=== PATIENT | female | born 1985 | race Caucasian/White ===

== ENCOUNTER 2021-06-28 21:41 | Emergency (ER) | payer MEDICARE, MEDICAID, SELFPAY ==
[2021-06-28 22:03] VITALS: BP 137/93; PULSE 90; RESP 16; TEMP 36.3; O2SAT 95
--- NOTE | 2021-06-29 00:04 | PC.NURSE ---
DNAP NOT FOUND IN WAITING ROOM
--- NOTE | 2021-06-29 00:15 | PC.NURSE ---
DNAP #2. NOT FOUND IN WAITING ROOM
--- NOTE | 2021-06-29 00:30 | PC.NURSE ---
DNAP #3. NOT FOUND IN WAITING ROOM.
== END 2021-06-29 00:04 | disposition left against medical advice (07) ==
LOC: ANHED 06-29 01:08
DX: Z53.21 Procedure and treatment not carried out due to patient leaving prior to being seen by health care provider (principal)
CPT/HCPCS: 99199

== ENCOUNTER 2024-03-14 09:20 | Emergency (ER) | payer OTHER, MEDICARE, MEDICAID, SELFPAY ==
--- NOTE | ~2024-03-14 | XR_ITS ---
EXAMINATION: XR ankle RT min 3V DATE: 03/14/2024 10:22 INDICATION: Medial right ankle pain post injury one week prior TECHNIQUE: Anteroposterior, oblique, mortise, and lateral views of the right ankle were obtained. COMPARISON: None. FINDINGS: Alignment is normal. No fracture. Joint spaces are well maintained. Tiny plantar calcaneal spur. No ankle joint effusion. The soft tissues are unremarkable. IMPRESSION: 1. Negative right ankle radiographs. Reviewed, dictated and finalized at location B. ATION DEPARTMENT REGISTRAR
--- NOTE | 2024-03-14 09:33 | ED_ITS ---
HPI - Extremity Injury (Lower) General Chief Complaint: Extremity Injury, Lower Stated Complaint: right ankle issue Time Seen by Provider: 03/14/24 10:00 Source: patient and RN notes reviewed Mode of arrival: ambulatory Limitations: no limitations History of Present Illness HPI Narrative: 38-year-old female presents concern of right pain. Reports 5 days ago she was in a massage chair when the massage chair squeezed her ankle tightly and she heard a pop. Reports since then she has had excruciating pain in her ankle, 10/10 that is worse with weight-bearing. She has been taking Aleve and ibuprofen without relief. She denies any swelling, bruising, redness, warmth. MD complaint: ankle injury Related Data Home Medications ?Medication ?Instructions ?Recorded ?Confirmed ?Last Taken ?Type meloxicam 15 mg tablet mg 03/14/24 Unknown History Allergies Allergy/AdvReac Type Severity Reaction Status Date / Time No Known Allergies Allergy Mild Verified 03/14/24 09:47 Review of Systems Review of Systems: CONSTITUTIONAL: Denies malaise, chills, sweats, or fever. SKIN: Denies rash or itching, open skin, laceration, abrasion, redness, warmth, swelling. MUSCULOSKELETAL: Reports right ankle pain NEUROLOGIC: Denies numbness, weakness All systems reviewed & are unremarkable except as noted in HPI and below PMFSH Comments At time of signature, agree with nursing past medical, surgical, social and family history. There is no relevant family history pertinent to the presenting complaint Exam Narrative: GENERAL: Well-appearing, well-nourished, and in no acute distress. HEAD: Normocephalic, atraumatic. EYES: PERRLA, conjunctivae clear NECK: Supple. CHEST: Speaks in full sentences. No respiratory distress. HEART: Regular rate and rhythm. Normal and equal peripheral pulses. EXTREMITIES: Right ankle, foot, digits have grossly normal strength and sensation, grossly normal range of motion. No edema or ecchymosis. Normal sensation with sensitivity to light touch and pain. No medial ankle tenderness. No open wounds, no skin tenting, no devitalized tissue or atrophy, no trophic changes, no obvious deformity, alignment normal, nearby joints and structures intact. Distal pulses palpable and equal bilaterally, skin warm, dry, pink. Capillary refill less than 3 seconds. SKIN: Warm, dry, no rash. NEURO: Alert and oriented x3. PSYCH: Normal mood and affect Course Course Emergency Course: Patient is aware of diagnosis, understands and agrees to treatment plan. Anticipatory guidance given. Patient agrees to follow-up as directed and is aware of reasons to seek care at the emergency department. Portions of this record may have been created with voice recognition software Level of Care: Express Care Visit Vital Signs Vital signs: Reviewed. MDM - Extremity Injury (Lower) MDM Narrative Medical decision making narrative: Patients injury and pain is consistent with musculoskeletal etiology. No signs of neurological or vascular compromise on exam. Compartments and tissues are soft without signs of compartment syndrome. Pain is felt appropriate for further evaluation on an outpatient basis. Critical Care Time Critical Care Time Critical Care Time: No Discharge Plan Discharge Clinical Impression: Ankle sprain and strain Patient Disposition: Home, Self-Care Condition: Stable Instructions: Ankle Sprain (ED) Additional Instructions: Your x-ray is normal Avoid activities that cause pain until the pain subsides. Ice to the area 20-30 minutes 4-6 times a day Elevate above heart Elastic wrap as needed for comfort for the next 5-7 days Tylenol for pain Ibuprofen regularly for the next 2-3 days for the inflammation Follow up with your primary care provider if the condition is not improving within 1 week. If the condition worsens with numbness, tingling, decrease sensation with weakness seek treatment in the emergency room immediately. Patient Language: Citizen Of [place] Prescriptions: No Action meloxicam 15 mg tablet Follow-up/Referrals: PHYSICIAN,STUD MASTER/MISTRESS [Primary Care Provider] - Stand Alone Forms: Work/School Release IP Time of Disposition: 10:36
[2024-03-14 09:36] VITALS: BP 128/94; PULSE 81; RESP 16; TEMP 36.4; O2SAT 99
== END 2024-03-14 10:39 | disposition home or self-care (01) ==
PROVIDERS: Emergency Provider Nurse Practitioner
DX: S93.401A Sprain of unspecified ligament of right ankle, initial encounter (principal); S96.911A Strain of unspecified muscle and tendon at ankle and foot level, right foot, initial encounter; X58.XXXA Exposure to other specified factors, initial encounter
CPT/HCPCS: 73610; 99203; G0463

== ENCOUNTER 2024-03-21 05:53 | Emergency (ER) | payer MEDICARE, MEDICAID, SELFPAY ==
--- NOTE | ~2024-03-21 | XR_ITS ---
XR knee RT 3V 03/21/2024 07:37 INDICATION: Right knee pain PROCEDURE: 3 views right knee COMPARISON: No prior studies for comparison. FINDINGS: Fracture, dislocation or subluxation is not identified. 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 No significant joint effusion. The soft tissues appe ar within normal limits. No foreign bodies are identified. IMPRESSION: 1: NO ACUTE BONE OR JOINT ABNORMALITY IDENTIFIED. Reviewed, dictated and finalized at location A. CARRIER
[2024-03-21 05:58] VITALS: BP 146/92; PULSE 89; RESP 16; TEMP 37.1; O2SAT 100
--- NOTE | 2024-03-21 07:31 | ED_ITS ---
HPI - General Adult General Chief complaint: Extremity Problem,Nontraumatic Stated complaint: right leg pain Time Seen by Provider: 03/21/24 07:05 History of Present Illness HPI narrative: 38-year-old female presented to the emergency department for evaluation for right knee pain as bottling her for last few days. Patient denies any specific incident of fall or injury. Patient reports the pain is worsened with ambulation and does radiate down to her foot. Patient does report pain is worsened with ambulation. Patient denies any pain in her foot or ankle but states sometimes the pain does radiate down to her foot. Related Data Home Medications ?Medication ?Instructions ?Recorded ?Confirmed ?Last Taken ?Type meloxicam 15 mg tablet mg 03/14/24 Unknown History Allergies Allergy/AdvReac Type Severity Reaction Status Date / Time No Known Allergies Allergy Mild Verified 03/21/24 06:02 Review of Systems Review of Systems: All systems reviewed & are unremarkable except as noted in HPI and below Exam Narrative: APPEARANCE: Well appearing, no pain, no distress, well-nourished. HEAD: normocephalic, atraumatic. EYES: PERRLA/EOMI, conjunctivae clear. NOSE: Normal no drainage EARS:TMS clear with good light reflex. THROAT: Pharynx clear, no exudate. NECK: Supple. No adenopathy, no masses. RESPIRATORY: Airway patent, respirations nonlabored. Clear to auscultation bilaterally, no rales, rhonchi, wheezing. CARDIOVASCULAR: Regular rate and rhythm without murmurs rubs or gallops. ABDOMINAL: Soft, nontender, nondistended, normal bowel sounds MUSCULOSKELETAL: Mild right knee tenderness to palpation with no edema, no ecch ymosis no limited range of motion, no a few NEURO: Alert. Cranial nerves II through XII intact. SKIN: Warm, dry. Normal Color Course Vital Signs Vital signs: Vital Signs Temperature 98.7 F 03/21/24 05:58 Pulse Rate 89 03/21/24 05:58 Respiratory Rate 16 03/21/24 05:58 Blood Pressure 146/92 H 03/21/24 05:58 Pulse Oximetry 100 03/21/24 05:58 Oxygen Delivery Room Air 03/21/24 05:58 Temperature 97.9 F 03/21/24 08:16 Pulse Rate 76 03/21/24 08:16 Respiratory Rate 16 03/21/24 08:16 Blood Pressure 132/76 03/21/24 08:16 Pulse Oximetry 100 03/21/24 08:16 Oxygen Delivery Room Air 03/21/24 05:58 Medical Decision Making MDM Narrative Medical decision making narrative: 38-year-old female presenting to the emergency department for evaluation for right knee pain. X-ray was negative for acute fracture dislocation. Patient was provided a knee immobilizer and crutches for limited weight-bearing. Patient was encouraged close follow-up with her primary care physician potential with Orthopedics. Differential Diagnosis Differential Diagnosis: Knee strain, internal derangement of the right knee, knee contusion Vital Signs Vital Signs: Vital Signs Temperature 98.7 F 03/21/24 05:58 Pulse Rate 89 03/21/24 05:58 Respiratory Rate 16 03/21/24 05:58 Blood Pressure 146/92 H 03/21/24 05:58 Pulse Oximetry 100 03/21/24 05:58 Oxygen Delivery Room Air 03/21/24 05:58 Temperature 97.9 F 03/21/24 08:16 Pulse Rate 76 03/21/24 08:16 Respiratory Rate 16 03/21/24 08:16 Blood Pressure 132/76 03/21/24 08:16 Pulse Oximetry 100 03/21/24 08:16 Oxygen Delivery Room Air 03/21/24 05:58 Imaging Data Radiologist's impression: Impressions Knee X-Ray 03/21/24 07:41 IMPRESSION: 1: NO ACUTE BONE OR JOINT ABNORMALITY IDENTIFIED. Discharge Plan Discharge Clinical Impression: Acute pain of right knee Patient Disposition: Home, Self-Care Condition: Stable Instructions: Antibiotic Form, Knee Sprain (ED), Crutch Instructions (ED) Additional Instructions: Tylenol and ibuprofen for pain control. Knee immobilizer for comfort, crutches for limited weight-bearing. Have close follow-up with your primary care physician. Patient Language: Surinamese Prescriptions: No Action meloxicam 15 mg tablet Follow-up/Referrals: UNKNOWN,DOCTOR [Primary Care Provider] -
[2024-03-21 08:16] VITALS: BP 132/76; PULSE 76; RESP 16; TEMP 36.6; O2SAT 100
--- OUTSIDE RECORDS SUMMARY | 2024-03-22 21:09 | XMS_ITS | Referral Summary ---
Author Organization [facility] [employer] Address [address] [place] [address] Care Team Providers Care Knitting Machine Tender Name Role Phone Tomas Corona MD Primary Care Provider [phone] Source Comments [facility] [employer],non-owned Affiliates and Associated Physician Practices is amultiple site organization consisting of ambulatory clinics and hospital sitesin [place], [place], [place] and [place]. This disclosure is being madepursuant to the Care Everywhere program and may not contain all information available regarding this patient. Last updated 17.[facility] [employer] Social History Tobacco Use Types Packs/Day Years Used Date Smoking Tobacco: Never Assessed Sex and Gender Information Value Date Recorded Sex Assigned at Not on file Gender Identity Not on file Sexual Orientation Not on file Last Filed Vital Signs Vital Sign Reading Time Taken Comments Blood Pressure 110/57 09/16/2011 2:11 PM CDT Pulse - - Temperature - - Respiratory Rate - - Oxygen Saturation - - Inhaled Oxygen Concentration - - Weight - - Height - - Body Mass Index - - Plan of Treatment Not on file Care Teams Knitting Machine Tender Relationship Specialty Start Date End Date Tomas Corona MD [address] [place] [address] PCP - General 09/16/11
--- OUTSIDE RECORDS SUMMARY | 2024-03-22 21:09 | XMS_ITS | Patient Health Summary ---
Author Organization [facility] [email or web address] Address [address] [place] [address] Care Team Providers Care Science Professor Name Role Phone Ash Corona MD Primary Care Provider [phone] Note from [facility],non-owned Affiliates and Associated Physician Practices is amultiple site organization consisting of ambulatory clinics and hospital sitesin [place] and [place]. This disclosure is being madepursuant to the Care Everywhere program and may not contain all information available regarding this patient. Last updated 17.[facility] [email or web address] Social History Tobacco Use Types Packs/Day Years [...] - - Body Mass Index - - Procedures * LAB RESULTS ORDER(Performed 12/01/2011) * IMAGING/RADIOLOGY/XRAY RESULTS ORDER(Performed 12/01/2011) * SONOGRAM - COMPLETE(Performed 09/16/2011) Results * LAB RESULTS ORDER (12/01/2011 7:25 AM CDT) Narrative Transcriptions Document, Scanned - 12/01/2011 7:25 AM CDT Scanned Document LAB - THERAPEUTIC DR MILLER MONITORING ORDERABLES * IMAGING/RADIOLOGY/XRAY RESULTS ORDER (12/01/2011 7:25 AM CDT) Anatomical Region Laterality Modality Other Narrative Transcriptions Document, Scanned - 12/01/2011 7:25 AM CDT Scanned Document IMAGING * SONOGRAM - COMPLETE (09/16/2011 1:28 PM CDT) Anatomical Region Laterality Modality Other 09/16/2011 1:28 PM CDT Narrative 09/16/2011 5:24 PM CDT ? [facility] ?PHONE: ??FAX: Pat. Name: ?SABINA ANDERSON Pat. No: ?[id number] Study Date: ?? 09/16/2011 ??1:28pm , Age: ? 1985, 26 Pregnancies: ?? 3, Para 2 LMP: ?Unknown GA by US: ? 32w2d GA Selected: ??33w2d (From Known E) RUMA: ?11/02/2011 Referring MD: ASH CORONA MD Production Administrative Assistant: ??Sneha Card RDMS Hist/Ind: ? Oligohydramnios ?Decreased Movement MEASUREMENTS & AGE ? GROWTH EVALUATION Measurement ??GA ? Range ? Srce %for GA Ratios ----- ---- ------- BPD ??8.1 cm 32w4d (69p9u-63g0r) Hadl BPD 40% FL/BPD 0.79 (0.71 - 0.87) HC ??29.4 cm 32w3d (50x2q-24z3l) Hadl HC ??37% FL/AC ??0.23 (0.20 - 0.24) AC ??27.4 cm 31w3d (99n4u-66a6l) Hadl AC ??23% HC/AC ??1.07 (0.95 - 1.13) FL ?? 6.4 cm 33w1d (55x5l-40f4z) Hadl FL ??49% CI ? 0.78 (0.70 - 0.86) HL ?? 5.5 cm 31w6d (60l5v-48n9p) Zeeshan HL ??27% GA for sonogram 32w2d (89v5f-34y3v) ?? Weight Estimate: based on (HL,BPD,HC,AC,FL) Avg ? Weight: 1920 gm (5207-8655) Hadlo ? : 4lbs, 3oz ? Normal: 2070 gm (1534- 2744) Brenn ? Wt% ? 39% for 33.3 wks Heart Rate: 147 bpm Amniotic Fluid Index: 08.0cm (08.2-24.6)* Biophysical Profile: 12/07 Breathin ?? Tone: 2 ?? NST: 2 Movement: ??2 ?? AFV: ??2 DOPPLER Umbilical - Mid Cord S/D ??2.80 CLINICAL SUMMARY Study Number: ??1 A berman fetus is identified in cephalic presentation. ?? size is consistent with RUMA by documented first trimester ultrasound. ?? The amniotic fluid volume is at lower confidence intervals for gestational age. ??The placenta is posterior, Grade 2 without previa. ??Although no major malformations are seen, size/position preclude completion of the anatomic survey (see table). DOPPLER STUDIES: ?? The umbilical artery Doppler S/D ratio is 2.8, which is within normal limits for gestational age. IMPRESSION: ?? Single, live, IUP 33w 2d, AGA fetus Borderline low STEPHANIE Limited anatomic survey is unremarkable Reassuring BPP Normal umbilical artery dopplers RECOMMEND: ?? All findings were discussed with Sabina. ??She reported possible leakage of amniotic fluid for the past two days. ?? A sterile speculum examination was performed which was negative, cervix appeared closed. ?? We discussed modified bed rest, hydration, twice daily kick counts (10/2 hours) and weekly surveillance with BPP/NST/STEPHANIE. Thank you for allowing us the opportunity to care for your patient. Analia Cullen MD <Electronic Signature> ??09/16/2011 05:25pm Ash Corona MD [facility] ORDERABLES Care Teams Science Professor Relationship Specialty Start Date End Date Ash Corona MD [address] [place] [address] PCP - General 09/16/11
--- OUTSIDE RECORDS SUMMARY | 2024-03-22 21:09 | XMS_ITS | Clinical Summary ---
Author Organization [facility] Address [address] [place] [address] Care Team Providers Care Range Management Specialist Name Role Phone Tomas Corona MD Primary Care Provider Source Comments [facility],non-owned Affiliates and Associated Physician Practices is amultiple site organization consisting of ambulatory clinics and hospital sitesin [place], [place], [place] and [place]. This disclosure is being madepursuant to the Care Everywhere program and may not contain all information available regarding this patient. Last updated 17.[facility] Social History Tobacco Use Types Packs/Day Years [...] Mass Index - - Plan of Treatment Health Maintenance Due Date Last Done Comments PAP SMEAR 1985 HIV SCREENING 2000 HEPATITIS C SCREENING 08/18/2003 DTAP/TDAP/TD VACCINES (1 - Tdap) 2004 HEPATITIS B VACCINE (1 of 3 - 19+ 3-dose series) 2004 COVID-19 VACCINE (2023-2 5 season) 2023 INFLUENZA VACCINE (#1) 2023 DEPRESSION SCREENING 02/29/2024 ZOSTER VACCINE (1 of 2) 08/23/2035 HIB VACCINE Aged Out No longer eligi ble based on patient's age to complete this topic HPV VACCINE Aged Out No longer eligi ble based on patient's age to complete this topic MENINGOCOCCAL (Group B) VACCINE Aged Out No longer eligible based on patient's age to complete this topic MENINGOCOCCAL VACCINE Aged Out No yanira lexi eligible based on patient's age to complete this topic PNEUMOCOCCAL VACCINE Aged Out No long er eligible based on patient's age to complete this topic Care Teams Range Management Specialist Relationship Specialty Start Date End Date Tomas Corona MD [address] [place] [address] PCP - General 09/16/11
== END 2024-03-21 08:28 | disposition home or self-care (01) ==
PROVIDERS: Emergency Provider Emergency Medicine
DX: M25.561 Pain in right knee (principal)
CPT/HCPCS: 73562; 99283

== ENCOUNTER 2024-05-11 14:40 | Emergency (ER) | payer MEDICARE, MEDICAID, SELFPAY ==
--- NOTE | ~2024-05-11 | XR_ITS ---
EXAMINATION: XR hip RT min 2V DATE: 05/11/2024 15:02 INDICATION: Right sacroiliac joint pain. Right-sided radiculopathy. TECHNIQUE: 2 views of right hip were obtained. COMPARISON: None. FINDINGS: Alignment is normal. No fracture. The right hip joint and right sacroiliac joint are normal . IMPRESSION: 1. Normal right hip. Reviewed, dictated and finalized at location L. IMPRESSION: 1. Normal right hip.
--- NOTE | 2024-05-11 14:43 | ED_ITS ---
HPI - Back Pain/Injury General Chief Complaint: Back Pain/Injury Stated Complaint: Back Pain Time Seen by Provider: 05/11/24 14:43 Source: patient Mode of arrival: ambulatory Limitations: no limitations History of Present Illness HPI Narrative: Sabina is a 38-year-old female patient presenting to the clinic today with complaints right posterior hip pain and pain radiating down her right leg. She reports no loss of bowel/bladder. No saddle anesthesia. States the pain starts in the posterior hip radiates down the lateral leg and goes into her toes. Pain is sharp in nature. States this has been going on for 4 weeks. Was seen in the emergency room and diagnosed with sciatica and given Toradol shot. Has not had any x-rays completed. She denies any urinary symptoms. She denies any fevers or chills. No nausea, vomiting, or diarrhea. Related Data Home Medications ?Medication ?Instructions ?Recorded ?Confirmed ?Last Taken ?Type meloxicam 15 mg tablet mg 03/14/24 Unknown History Allergies Allergy/AdvReac Type Severity Reaction Status Date / Time No Known Allergies Allergy Mild Verified 05/11/24 14:59 Review of Systems Review of Systems: Pertinent positives per HPI. Patient denies any fever, chills, rash, headache, visual changes, dizziness, cough, runny nose, sore throat, shortness of breath, chest pain, palpitations, nausea, vomiting, diarrhea, constipation, abdominal pain, or any urinary issues. PMFSH Comments At the time of my signature, I reviewed and agree with the nursing past medical, surgical, social, and family history. There is no relevant family history pertinent to the patient complaint. Exam Narrative: General: Well-developed, well nourished, in no apparent distress Head: Normocephalic, atraumatic. Cardio: Regular rate and rhythm, s1 and s2 normal, no murmur appreciated. Resp: Clear to auscultation bilaterally, no rhonchi, rales, wheezing or rubs. Musculoskeletal: No deformity, tender to palpation over the posterior hip/SI joint, unable to bear full weight on the right leg, pain with flexing the right hip, pain with stepping up, muscle strength strong and equal, peripheral pulse strong, no edema, no cyanosis, normal gait and station Course Course Emergency Course: Portions of this record may have been created with voice recognition software. Level of Care: Express Care Visit Vital Signs Vital signs: Vital Signs Temperature 36.8 C 05/11/24 14:49 Pulse Rate 107 H 05/11/24 14:49 Respiratory Rate 19 05/11/24 14:49 Blood Pressure 135/79 05/11/24 14:49 Pulse Oximetry 100 05/11/24 14:49 Oxygen Delivery Room Air 05/11/24 14:49 Temperature 36.8 C 05/11/24 14:49 Pulse Rate 107 H 05/11/24 14:49 Respiratory Rate 19 05/11/24 14:49 Blood Pressure 135/79 05/11/24 14:49 Pulse Oximetry 100 05/11/24 14:49 Oxygen Delivery Room Air 05/11/24 14:49 Vital signs reviewed MDM - Back Pain/Injury MDM Narrative Medical decision making narrative: At the time of visit patient is resting comfortably on the exam table. Patient appears to be nontoxic. Diagnostics: X-ray of the right hip was performed and negative for any sign intraosseous process. Plan: I suspect patient has right SI joint pain with sciatica. Prescription for Medrol Dosepak and Flexeril was sent to the pharmacy. Supportive measures were discussed with the patient and they voiced understanding discharge instructions and agrees to treatment plan. Return precautions reviewed Differential Diagnosis Differential diagnosis: Likely lumbar radiculopathy, sciatica, strain of lumbar region, renal colic, pyelonephritis and other (SI joint dysfunction, bursitis, osteoarthritis) Imaging Data Radiologist's impression: ITS Impressions Hip X-Ray 05/11/24 15:09 IMPRESSION: 1. Normal right hip. Discharge Plan Discharge Clinical Impression: Sacroiliac joint pain Sciatica Qualifiers: Laterality: right Qualified Code(s): M54.31 - Sciatica, right side Patient Disposition: Home, Self-Care Condition: Stable Instructions: Antibiotic Form, Sciatica (ED), Sacroiliitis (ED) Additional Instructions: Take any prescription medication only as prescribed-Medrol Dosepak and Flexeril Be mindful of sedation precautions given to you if taking a muscle relaxer. May use heat or ice to the affected area Consider massage or chiropractor adjustment if this was discussed with provider May use blue emu, lidocaine patches, or asper cream to affected area- do not apply heat or ice directly over cream- can cause burn. Complete appropriate back stretching exercises. Follow up with your PCP in 3-5 days if symptom persist. Patient Language: Kyrgyz Prescriptions: New methylprednisolone [Medrol (Christophe)] 4 mg tablets,dose pack See Rx Instructions PO .COMPLEX Qty: 21 0RF Rx Instructions: orally per package directions cyclobenzaprine 10 mg tablet 10 mg PO Q8H PRN (Reason: muscle spasm) 7 Days Qty: 21 0RF No Action meloxicam 15 mg tablet Follow-up/Referrals: UNKNOWN,DOCTOR [Primary Care Provider] - Time of Disposition: 15:15 Quality NIHSS Nursing Documentation ED NIHSS nursing documentation: reviewed/agree
[2024-05-11 14:49] VITALS: BP 135/79; PULSE 107; RESP 19; TEMP 36.8; O2SAT 100
== END 2024-05-11 15:29 | disposition home or self-care (01) ==
PROVIDERS: Emergency Provider Nurse Practitioner Family
DX: M53.3 Sacrococcygeal disorders, not elsewhere classified (principal); M54.31 Sciatica, right side
CPT/HCPCS: 73502; 99213; G0463